=== PATIENT | male | born 1980 | race Caucasian/White ===

== ENCOUNTER 2018-04-28 18:24 | Emergency (ER) | payer BC ==
--- NOTE | 2018-04-28 20:50 | EDM.PDOC ---
ED HPI GENERAL MEDICAL PROBLEM - General Chief Complaint: Cardiovascular Problem Stated Complaint: SWELLING IN FEET/SOB Time Seen by Provider: 04/28/18 19:30 Source of Information: Reports: Patient - History of Present Illness INITIAL COMMENTS - FREE TEXT/NARRATIVE: see dictated documentation Right Leg Pain Score (Numeric/FACES): 3 - Related Data Allergies Allergy/AdvReac Type Severity Reaction Status Date / Time No Known Allergies Allergy Verified 04/28/18 18:46 Home Meds: Home Meds . [No Known Home Meds] 04/28/18 [History] Past Medical History - Past Health History Medical/Surgical History: Denies Medical/Surgical History Social & Family History - Tobacco Use Smoking Status *Q: Never Smoker - Caffeine Use Caffeine Use: Reports: Soda - Recreational Drug Use Recreational Drug Use: No ED ROS GENERAL - Review of Systems Review Of Systems: ROS reveals no pertinent complaints other than HPI. ED EXAM, GENERAL - Physical Exam Exam: See Below Course - Vital Signs Last Recorded V/S: Last Vital Signs Temp 36.7 C 04/28/18 18:40 Pulse 87 04/28/18 18:40 Resp 18 04/28/18 18:40 BP 149/102 H 04/28/18 18:40 Pulse Ox 100 04/28/18 18:40 - Orders/Labs/Meds Orders: Active Orders 24 hr Category Date Time Status EKG Documentation Completion [RC] ASDIRECTED Care 04/28/18 19:31 Active UA W/MICROSCOPIC [URIN] Stat Lab 04/28/18 20:15 Ordered EKG 12 Lead [EK] Stat Ther 04/28/18 19:30 Ordered Labs: Laboratory Tests 04/28/18 04/28/18 04/28/18 Range/Units 19:50 19:50 20:15 WBC 4.02 L (4.23-9.07) K/mm3 RBC 5.00 (4.63-6.08) M/mm3 Hgb 15.8 (13.7-17.5) gm/L Hct 43.4 (40.1-51.0) % MCV 86.8 (79.0-92.2) fl MCH 31.6 (25.7-32.2) pg MCHC 36.4 H (32.2-35.5) g/dl RDW Std Deviation 40.6 (35.1-43.9) fL Plt Count 135 L (163-337) K/mm3 MPV 10.2 (9.4-12.3) fl Neut % (Auto) 50.1 (34.0-67.9) % Lymph % (Auto) 34.1 (21.8-53.1) % [place] % (Auto) 12.2 (5.3-12.2) % Eos % (Auto) 2.7 (0.8-7.0) Baso % (Auto) 0.7 (0.1-1.2) % Neut # (Auto) 2.01 (1.78-5.38) K/mm3 Lymph # (Auto) 1.37 (1.32-3.57) K/mm3 Brooke # (Auto) 0.49 (0.30-0.82) K/mm3 Eos # (Auto) 0.11 (0.04-0.54) K/mm3 Baso # (Auto) 0.03 (0.01-0.08) K/mm3 Sodium 138 (136-145) mEq/L Potassium 3.9 (3.5-5.1) mEq/L Chloride 102 (98-107) mEq/L Carbon Dioxide 28 (21-32) mEq/L Anion Gap 11.9 (5-15) BUN 9 (7-18) mg/dL Creatinine 1.1 (0.7-1.3) mg/dL Est Cr Clr Drug Dosing 102.88 mL/min Estimated GFR (MDRD) > 60 (>60) mL/min BUN/Creatinine Ratio 8.2 L (14-18) Glucose 129 H (74-106) mg/dL Calcium 8.0 L (8.5-10.1) mg/dL Total Bilirubin 0.6 (0.2-1.0) mg/dL AST TNP ALT TNP Alkaline Phosphatase 73 (46-116) U/L Total Protein 7.5 (6.4-8.2) g/dl Albumin 3.8 (3.4-5.0) g/dl Globulin 3.7 gm/dL Albumin/Globulin Ratio 1.0 (1-2) Urine Color Yellow (Yellow) Urine Appearance Clear (Clear) Urine pH 6.5 (5.0-8.0) Ur Specific [place] 1.010 (1.005-1.030) Urine Protein Negative (Negative) Urine Glucose (UA) Negative (Negative) Urine Ketones Negative (Negative) Urine Occult Blood Negative (Negative) Urine Nitrite Negative (Negative) Urine Bilirubin Negative (Negative) Urine Urobilinogen 0.2 (0.2-1.0) Ur Leukocyte Esterase Negative (Negative) Departure - Departure Time of Disposition: 20:49 Disposition: Home, Self-Care 01 Condition: Good Clinical Impression: Dependent edema Instructions: Peripheral Edema Referrals: PCP,None [Primary Care Provider] - - My Orders Last 24 Hours: My Active Orders 04/28/18 19:30 EKG 12 Lead [EK] Stat 04/28/18 19:31 EKG Documentation Completion [RC] ASDIRECTED 04/28/18 20:15 UA W/MICROSCOPIC [URIN] Stat - Assessment/Plan Last 24 Hours: My Active Orders 04/28/18 19:30 EKG 12 Lead [EK] Stat 04/28/18 19:31 EKG Documentation Completion [RC] ASDIRECTED 04/28/18 20:15 UA W/MICROSCOPIC [URIN] Stat
--- NOTE | 2018-04-28 23:10 | ER ---
REASON FOR EMERGENCY ROOM VISIT: Edema. HISTORY OF PRESENT ILLNESS: This 37-year-old man was driving with his from [place] to [place] as they were moving to the area. He states that for the past 36 hours he has been constantly sitting in the truck, drinking a lot of caffeinated beverages, and sitting the entire time. He has not slept at all. He noticed this afternoon that he had edema in both lower extremities, somewhat worse on the right than on the left and this caused some alarm in him followed by a feeling of anxiety and shortness of breath. He then felt some tightness in his arms and stiffness all over his arms, legs, and across his chest. Along with this, he developed some air hunger, but the edema and lack of sleep, probably was the main reason for all this occurring. PAST MEDICAL HISTORY: Significant for history of seizures x2, but none in the past 15 or 20 years. CURRENT MEDICATIONS: Depakote. ALLERGIES: None to medications. SOCIAL HISTORY: He is . He has no children. He is a nonsmoker. He drinks maybe 2 or 3 alcoholic beverages per week. He works for the [employer]. FAMILY HISTORY: His father and mother and sister are all alive and well. He has no other siblings. They do not have any children. REVIEW OF SYSTEMS: Pertinent positives and negatives as listed in the HPI. In particular, he has no history of cardiopulmonary or renal disease. He has no history of liver disease and his review of systems referable to these areas are completely negative. PHYSICAL EXAMINATION: GENERAL: Reveals a pleasant young man in no acute distress. VITAL SIGNS: He is afebrile. Blood pressure 149/102, heart rate was 87, O2 saturations 100% on room air, respiratory rate is 18. HEENT: Head is normocephalic. Good color. Normal mucosa. NECK: Supple. No JVD. No adenopathy. CHEST: Clear to auscultation without wheezes, rhonchi, or rales. Good air exchange. CARDIAC: Regular rate without murmur. ABDOMEN: Obese, soft, nontender. No masses. EXTREMITIES: He has mild to moderate edema with some pitting below the knees bilaterally. It appears to be symmetrical. His pulses are palpable. His feet are pink and warm. LABORATORY DATA: His WBC was 4.02, which is slightly depressed, but he has no anemia. His CMP does show that he has mild hypocalcemia with a calcium of 8.0 and an albumin of 3.8. His urinalysis is completely negative. IMPRESSION: 1. Dependent edema. Basically, hydrostatic forces are at play combined with probably his excessive caffeinated beverage intake and sleep deprivation has played a role. 2. Mild hypocalcemia. I doubt that this is playing a role. He was informed of this and told that he may need to take some calcium supplementation and this should be followed up in the future. I did not recommend any specific medications or anything else other than rest and periodic rest while he is traveling long distances. I explained the mechanism for development of this edema and what led up to this point. He understands and agrees. All questions were answered. LESLIE /[id number]
== END 2018-04-28 21:00 | disposition home or self-care (01) ==
LOC: JD.ED 18:24
DX: E83.51 Hypocalcemia (principal); R60.0 Localized edema
CPT/HCPCS: 36415; 80053; 81001; 85025; 93005; 99284-25